=== PATIENT | male | born 1995 | race Caucasian/White ===

== ENCOUNTER 2017-05-15 13:04 | Emergency (ER) | payer OTHER ==
[2017-05-15] MEDS ORDERED: MECLIZINE HCL 25 MG TAB PO ONE ×2 (14:08)
[2017-05-15] MEDS ORDERED: NS 1,000 ML IV ONE (14:38)
--- NOTE | 2017-05-15 14:41 | EDPHY ---
HPI/HX/ROS/PE/MDM Narrative: CHIEF COMPLAINT: Lightheadedness HPI: The patient is a 21-year-old male with history of anxiety. He notes increasing episodes of lightheadedness and dizziness over the last 8 days. He denies any true sense of movement but states he gets a little dizzy. Episodes occur approximately every 10 min all day long for the last 8 days. This is associated with a feeling of being slow to respond. The patient states he has had some difficulty walking and certainly does not feel safe to drive. He denies headache, visual changes, chest pain, shortness of breath, fever. No recent trauma. He denies drug abuse. His mother, who was at bedside, states that he seems to be thinking slower than normal. REVIEW OF SYSTEMS: Aside from elements discussed in the HPI, a comprehensive 10-point review of systems was reviewed and is negative. PMH: History of anxiety disorder. No significant family history. SOCIAL HISTORY: Single. 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 PHYSICAL EXAM: General:Patient is alert, in no acute distress. ENT:Eyes are normal to inspection. ENT inspection normal. Neck: Normal inspection. Full range of motion. Respiratory:No respiratory distress. Breath sounds normal bilaterally. Cardiovascular: Regular rate and rhythm. Strong peripheral pulses. Normal cap refill. Abdomen:The abdomen is nontender to palpation. There are no peritoneal signs. There are normal bowel sounds. Back: Normal to inspection. No tenderness to palpation. Skin: Normal color. No rash. Warm and dry. Extremities: Normal appearance. Full range of motion. Neuro: Oriented x3. Normal motor function. Normal sensory function. Normal finger-nose bilaterally. Normal eawa-mw-somm bilaterally. Negative Romberg. No dysdiadochokinesis. No pronator drift. ED Course: 21 y/o male presents following episodes of dizziness and cognitive "fogginess" worsening over the last month. Chest x-ray normal. 16:[address] Fowler, radiologist. CT shows possible subtle bilateral subdural hematoma. Plan for MRI for further evaluation. 17:[address] Miller, radiologist. MRI brain shows white matter lesions consistent with MS. 17:[address] Myrick, neurologist. He is comfortable with outpatient followup. He does not recommend steroid administration at this time. 17:37 Reassessed patient. Discussed results. There is family history of MS. MDM: This is a young healthy male with several months of vague and somewhat unusual neurologic symptoms. His MRI is suggestive of MS, which is consistent with his symptoms. He is clinically stable and will be referred to neurology, who has recommended no treatment with steroids at this time. Patient and family are comfortable with this plan. I see no evidence of CVA, seizure, electrolyte abnormality or diabetes. - Data Points Imaging Results: Imaging Impressions Chest X-Ray 05/15/17 14:38 Impression: Normal chest. Head CT 05/15/17 15:34 Impression: Equivocally a tiny posterior parafalcine parietal subdural hematoma. Results called to Dr. Fernando Guillen at 4:00 PM General information for patients regarding this examination can be found at [email or web address]. If you have questions or comments about this report, please contact me at (hospital) or [phone] (cell). Brain MRI 05/15/17 16:06 Impression: 1. Several brainstem and bilateral frontoparietal periventricular hyperintense T2/FLAIR white matter lesions highly suggestive of a demyelinating disease such as multiple sclerosis with a differential diagnosis of Lyme disease. 2. No acute hemorrhage, hydrocephalus or mass effect. 3. No acute infarct. Findings and recommendations discussed with Emergency Department physician, Fernando Guillen MD at 1716 hour, 05/15/2017. Final report concurs with initial preliminary interpretation. Imaging: Discussed imaging studies w/ call center consultant Radiologist, I viewed and interpreted images myself Laboratory Results: Laboratory Results 05/15/17 14:49 05/15/17 14:49 05/15/17 05/15/17 14:49 14:49 WBC 4.95 10^3/uL 10^3/uL (3.80-9.50) RBC 5.66 10^6/uL 10^6/uL (4.40-6.38) Hgb 17.4 g/dL g/dL (13.7-17.5) Hct 49.1 % % (40.0-51.0) MCV 86.7 fL fL (81.5-99.8) MCH 30.7 pg pg (27.9-34.1) MCHC 35.4 g/dL g/dL (32.4-36.7) RDW 12.6 % % (11.5-15.2) Plt Count 210 10^3/uL 10^3/uL (150-400) MPV 9.2 fL fL (8.7-11.7) Neut % (Auto) 55.0 % % (39.3-74.2) Lymph % (Auto) 31.9 % % (15.0-45.0) Mcmullen % (Auto) 10.5 % % (4.5-13.0) Eos % (Auto) 1.6 % % (0.6-7.6) Baso % (Auto) 0.8 % % (0.3-1.7) Nucleat RBC Rel Count 0.0 % % (0.0-0.2) Absolute Neuts (auto) 2.72 10^3/uL 10^3/uL (1.70-6.50) Absolute Lymphs (auto) 1.58 10^3/uL 10^3/uL (1.00-3.00) Absolute Monos (auto) 0.52 10^3/uL 10^3/uL (0.30-0.80) Absolute Eos (auto) 0.08 10^3/uL 10^3/uL (0.03-0.40) Absolute Basos (auto) 0.04 10^3/uL 10^3/uL (0.02-0.10) Absolute Nucleated RBC 0.00 10^3/uL 10^3/uL (0-0.01) Immature Gran % 0.2 % % (0.0-1.1) Immature Gran # 0.01 10^3/uL 10^3/uL (0.00-0.10) Sodium 142 mEq/L mEq/L (135-145) Potassium 3.8 mEq/L mEq/L (3.5-5.2) Chloride 108 mEq/L mEq/L (97-110) Carbon Dioxide 22 mEq/l mEq/l (22-31) Anion Gap 12 mEq/L mEq/L (8-16) BUN 17 mg/dL mg/dL (7-23) Creatinine 0.8 mg/dL mg/dL (0.7-1.3) Estimated GFR > 60 Glucose 101 mg/dL H mg/dL (70-100) Calcium 10.0 mg/dL mg/dL (8.5-10.4) Magnesium 2.1 mg/dL mg/dL (1.6-2.3) Total Bilirubin 1.3 mg/dL mg/dL (0.1-1.4) Conjugated Bilirubin 0.3 mg/dL mg/dL (0.0-0.5) Unconjugated Bilirubin 1.0 mg/dL mg/dL (0.0-1.1) AST 24 IU/L IU/L (17-59) ALT 24 IU/L IU/L (21-72) Alkaline Phosphatase 57 IU/L IU/L (38-126) Troponin I < 0.012 ng/mL ng/mL (0.000-0.034) Total Protein 7.3 g/dL g/dL (6.3-8.2) Albumin 4.6 g/dL g/dL (3.5-5.0) TSH 1.740 uIU/mL uIU/mL (0.465-4.680) Medications Given: Discontinued Medications Sodium Chloride (Ns) 1,000 mls @ 0 mls/hr IV EDNOW ONE; Wide Open PRN Reason: Protocol Stop: 05/15/17 14:39 Last Admin: 05/15/17 15:02 Dose: 1,000 mls Meclizine HCl (Meclizine Hcl) 25 mg PO EDNOW ONE Stop: 05/15/17 14:09 Last Admin: 05/15/17 14:11 Dose: 25 mg General Time Seen by Provider: 05/15/17 13:55 Initial Vital Signs: Initial Vital Signs Temperature (C) 37.0 C 05/15/17 13:09 Heart Rate 95 05/15/17 13:09 Respiratory Rate 16 05/15/17 13:09 Blood Pressure 148/88 H 05/15/17 13:09 O2 Sat (%) 98 05/15/17 13:09 O2 Delivery Mode Room Air Allergies/Adverse Reactions: No Known Allergies Allergy (Unverified 05/15/17 13:08) Home Medications: Medication Instructions Recorded NK [No Known Home Meds] 05/15/17 Departure - Departure Disposition: Home, Routine, Self-Care Clinical Impression: Multiple sclerosis Condition: Good Additional Instructions: 1. Follow up with neurology this week for further evaluation. 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 Be sure you tell the office when you call that you are being seen for MS evaluation for scheduling purposes. 2. Return to the emergency department for any worsening of condition or further concerns. Referrals: George Deluca MD [Primary Care Provider] - As per Instructions Estiven Myrick MD [Medical Doctor] - As per Instructions Report Scribed for: Fernando Guillen Report Scribed by: Hazel Tinoco Date of Report: 05/15/17 Time of Report: 17:31 Physician Review and Approval Statement: Portions of this note were transcribed by an ED scribe. I personally performed the history, physical exam, and medical decision making; and confirm the accuracy of the information in the transcribed note.
--- NOTE | 2017-05-15 14:46 | CPEKG ---
Heart Rate: 69 RR Interval: 870 P-R Interval: 160 QRSD Interval: 94 QT Interval: 360 QTC Interval: 386 P [place]: 64 QRS [place]: 47 T Wave [place]: 54 EKG Severity - NORMAL ECG - EKG Impression: SINUS RHYTHM Electronically Signed By: Dk Hernandez 17-May-2017 07:06:19
[2017-05-15 15:00] LABS: PLATELET COUNT 210 10^3/uL (150-400)
[2017-05-15 18:05] VITALS: BP 120/81; PULSE 86; RESP 16; TEMP 99; O2SAT 99
== END 2017-05-15 18:05 | disposition home or self-care (01) ==
DX: G35 Multiple sclerosis (principal); E86.9 Volume depletion, unspecified

== ENCOUNTER → 2017-05-19 | Outpatient (CLI) | payer OTHER ==
[~2017-05-19] MED LIST: GADOBUTROL 10 ML VIAL IVP ONE
== END ==
LOC: FIMAGING 12:25
DX: R90.82 White matter disease, unspecified (principal); G95.89 Other specified diseases of spinal cord
CPT/HCPCS: A9585